=== PATIENT | female | born 1945 | race American Indian/Alaskan Native ===

== ENCOUNTER 2021-11-24 16:36 | Emergency (ER) | payer MEDICARE, OTHER ==
[2021-11-24 17:22] VITALS: BP 190/87
[2021-11-24 18:26] LABS: Basophils % (Auto) 0.5 % (0.0-1.8); Eosinophils % (Auto) 0.6 % (0.0-4.3); Hematocrit 31.1 % (30.3-42.9); Hemoglobin 9.9 gm/dl (10.1-14.3); Lymphocytes # (Auto) 1.4 K/mm3 (1.2-5.4); Lymphocytes % (Auto) 32.1 % (13.4-35.0); Mean Corpuscular HGB Conc 32 % (30-34); Mean Corpuscular Volume 81 fl (79-97); Monocytes # (Auto) 0.3 K/mm3 (0.0-0.8); Platelet Count 289 K/mm3 (140-440); Red Blood Count 3.84 M/mm3 (3.65-5.03); Red Cell Distribution Width 16.5 % (13.2-15.2)
--- NOTE | 2021-11-24 18:28 | XRay Report ---
CHEST 2 VIEWS INDICATION / CLINICAL INFORMATION: sob STUDY TIME: 1751 COMPARISON: None available. FINDINGS: SUPPORT DEVICES: Right jugular Port-A-Cath with tip in area of atrial caval junction HEART / MEDIASTINUM: No significant abnormality. LUNGS / PLEURA: Moderate left pleural effusion. Left basilar atelectasis/infiltrate. Density in left upper hemithorax I suspect may relate to semiupright position and layering of effusion though infiltr ate in left upper lobe also not excluded. Right lung field clear. No pneumothorax. ADDITIONAL FINDINGS: No significant additional findings. Signer Name: Vinnie Ramirez MD Signed: 11/24/2021 6:24 PM Workstation Name: [id number]
[2021-11-24 18:35] LABS: INR 0.94 (0.87-1.13)
[2021-11-24 18:36] LABS: Partial Thromboplastin Time 32.4 Sec. (24.2-36.6)
[2021-11-24 18:47] LABS: Creatine Kinase MB 1.9 ng/mL (0.0-4.0)
[2021-11-24 18:48] LABS: Alanine Aminotransferase 10 units/L (7-56); Albumin 3.8 g/dL (3.9-5); BUN/Creatinine Ratio 13; Blood Urea Nitrogen 20 mg/dL (7-17); Calcium 9.1 mg/dL (8.4-10.2); Hemolysis Index 0
--- NOTE | 2021-11-25 09:55 | Electrocardiograph Report ---
[facility] Test Date: 2021-11-24 Test Time: 17:24:36 Pat Name: KIRSTY BROWN Department: Room: Gender: F Mailroom Assistant: [birth year] : 1945 Requested By: GINA SAAVEDRA Order Number: [id number] Reading MD: Rk Sebastian Measurements Intervals [place] Rate: 84 P: 46 SC: 129 QRS: -33 QRSD: 79 T: 60 QT: 341 QTc: 404 Interpretive Statements Sinus rhythm poor r wave progressions No previous ECG available for comparison Electronically Signed On 11-25-2021 9:55:30 EDT by Rk Sebastian
== END 2021-11-25 00:35 | disposition left against medical advice (07) ==
LOC: ED 16:36
DX: R06.02 Shortness of breath (principal); Z53.21 Procedure and treatment not carried out due to patient leaving prior to being seen by health care provider
CPT/HCPCS: 36415; 71046; 80053; 82550; 82553; 83880; 84484; 85025; 85610; 85730; 93005